=== PATIENT | male | born 1955 | race Caucasian/White ===

== ENCOUNTER 2020-11-24 10:19 | Emergency (ER) | payer SELFPAY ==
[~2020-11-24] VITALS: Ht 172.7 cm; Wt 61.2 kg
== END 2020-11-24 16:04 | disposition home or self-care (01) ==
LOC: ER 11:49
DX: J44.0 Chronic obstructive pulmonary disease with (acute) lower respiratory infection (principal); I10 Essential (primary) hypertension; E78.5 Hyperlipidemia, unspecified; Z86.718 Personal history of other venous thrombosis and embolism; F17.210 Nicotine dependence, cigarettes, uncomplicated
CPT/HCPCS: 99283